=== PATIENT | male | born 2005 | race Caucasian/White ===

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

== ENCOUNTER 2024-06-22 02:41 | Day surgery (SDC) | payer OTHER ==
[~2024-06-22] VITALS: Ht 177.8 cm; Wt 77.4 kg
[2024-06-22] VITALS (9 sets, daily range): BP systolic 108–125; BP diastolic 63–83; PULSE 53–86; TEMP 97.9–98.6
[2024-06-22] MEDS ORDERED: Ketorolac 15 MG/ML VIAL IV ONE (03:00)
[2024-06-22] MEDS ORDERED: NS 1,000 ML IV ONE (03:00)
[2024-06-22] MEDS ORDERED: Iohexol 300 - 100 ML VIAL IV ONE (03:20)
[2024-06-22] MEDS ORDERED: NS 50 ML IV SCH (03:20)
[2024-06-22 03:23] LABS: BASO # 0.1 K/mm3 (0.0-0.2); BASO % 0.3 % (0.0-2.0); EOS # 1.4 K/mm3 (0.0-0.7); GRAN # 12.5 K/mm3 (1.4-6.5); GRAN % 74.3 % (42.2-75.2); HEMATOCRIT 40.2 % (42.0-52.0); LYMPH # 2.2 K/mm3 (1.2-3.4); LYMPH % 13.2 % (20.0-51.0); MEAN CELL VOLUME 93 fl (80.0-100.0); MEAN CORPUSCULAR HEMOGLOBIN 32 pg (27-31); MEAN CORPUSCULAR HGB CONC 35 g/dl (33.0-37.0); MEAN PLATELET VOLUME 9.2 fl (7.4-10.4); MONO # 0.6 K/mm3 (0.1-0.6); MONO % 3.8 % (1.7-9.3); PLATELET COUNT 272 K/mm3 (130-400); RED BLOOD COUNT 4.34 M/mm3 (4.20-5.60); REDCELL DISTRIBUTION WIDTH-CV 13.2 % (11.5-14.5)
[2024-06-22 03:24] LABS: URINE APPEARANCE CLEAR (CLEAR/HAZY); URINE BLOOD NEGATIVE (NEGATIVE); URINE COLOR YELLOW (YELLOW); URINE GLUCOSE NEGATIVE (NEGATIVE); URINE KETONE NEGATIVE (NEGATIVE); URINE NITRATE NEGATIVE (NEGATIVE); URINE PROTEIN(semi-quant) NEGATIVE (NEGATIVE); URINE UROBILINOGEN 0.2 E.U/dL (0.2-1.0)
[2024-06-22 03:47] LABS: BILIRUBIN,TOTAL 0.5 mg/dL (0.2-1.2); CALCIUM 9.2 mg/dL (8.4-10.2); CREATININE, serum 1.26 mg/dL (0.72-1.25); MAGNESIUM 1.8 mg/dL (1.6-2.6); POTASSIUM 4.1 mEq/L (3.5-4.5); TOTAL PROTEIN 6.7 g/dl (6.2-8.1)
[2024-06-22 03:48] LABS: COLLECTION METHOD CLEAN CATCH
--- NOTE | 2024-06-22 04:51 | NUR ---
THE PATIENT ARRIVED VIA WC ACCOMPANIED BY ED STAFF. THE PATIENT WAS ALERT AND ORIENTED. VITAL SIGNS STABLE. THE PATIENT WAS ORIENTED TO THE ROOM AND BED CONTROLS. CALL LIGHT WITHIN REACH.
[2024-06-22] MEDS ORDERED: ZYRTEC ALLERGY10 MG PO (04:54)
[2024-06-22] MEDS ORDERED: Morphine 4 MG/ML VIAL IV PRN (05:00)
--- NOTE | 2024-06-22 09:10 | NUR ---
SHIFT ASSESSMENT COMPLETE. VSS. PATIENT RESTING IN BED AT THIS TIME, AWAITING TO GO DOWN FOR SURGERY. PATIENT REPORTS FEELING SORE IN THE ABD AREA BUT NO ACTIVE PAIN. PATIENT INDEPENDENT IN ROOM AND HAS GIRLFRIEND AT BEDSIDE. PATIENT HAS NO NEEDS RIGHT NOW. CALL LIGHT IN REACH
[2024-06-22] MEDS ORDERED: LR 1,000 ML IV SCH (09:30)
--- NOTE | 2024-06-22 09:39 | NUR ---
SW met with patient to complete intake. Patient provides he currently lives in [facility] but originally from [place]. Next of kin or point of contact is his mother Marilyn Gallardo [phone]. 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 Patient states that his PCP is in [place] and currently utilizes [facility] for his pharmacy. No DPOA has been appointed and patient plans to return to his home in [facility] upon discharge. [facility] will continue to follow. Discharge plan: home
[2024-06-22] MEDS ORDERED: fentaNYL 50 MCG/ML 2 ML VIAL ONE (09:58)
[2024-06-22] MEDS ORDERED: Rocuronium 50 MG/5 ML Multi-Dose VIAL ONE (09:58)
[2024-06-22] MEDS ORDERED: NS 0 ML IV ONE (09:58)
[2024-06-22] MEDS ORDERED: dexAMETHasone 10 MG/ML VIAL ONE (09:58)
[2024-06-22] MEDS ORDERED: Lidocaine PF 2% (20 MG/ML) 5 ML VIAL ONE (09:58)
[2024-06-22] MEDS ORDERED: Ondansetron 4 MG/2 ML VIAL ONE (09:58)
[2024-06-22] MEDS ORDERED: Morphine 2 MG/1 ML VIAL [PACU/SDC ONLY] IV PRN (10:15)
[2024-06-22] MEDS ORDERED: Ondansetron 4 MG/2 ML VIAL IV PRN ×3 (10:15→12:15)
[2024-06-22] MEDS ORDERED: Meperidine 50 MG/ML 1 ML VIAL IV PRN (10:15)
[2024-06-22] MEDS ORDERED: HYDROmorphone 1 MG/1 ML SYRINGE [PACU/SDC ONLY] IV PRN (10:15)
[2024-06-22] MEDS ORDERED: fentaNYL 50 MCG/ML 1 ML SYRINGE/VIAL [PACU/SDC ONLY] IV PRN (10:15)
[2024-06-22] MEDS ORDERED: Acetaminophen 500 MG TAB PO PRN (12:15)
--- NOTE | 2024-06-22 12:30 | NUR ---
PATIENT ARRIVED TO FLOOR AT 1215. VSS. PATIENT REPORTS NO PAIN AT THIS TIME. WATER GIVEN PATIENT DECLINED FOOD AT THIS TIME. PATIENT HAS NO NEEDS AT THIS TIME, FAMILY AT BEDSIDE. [address] [facility]. CALL LIGHT IN REACH
--- NOTE | 2024-06-22 12:35 | NUR ---
Data: Spiritual care visit attempted during Leader Tier rounds. Patient was in surgery. Assessment: None at this time. Plan of Care: Chaplains will remain available as needed/requested while Patient is admitted to this hospital.
== END 2024-06-22 15:00 | disposition home or self-care (01) ==
LOC: COL.ER 02:41 → SDCO 03:35 → SURG 03:35 → SDCO 03:35 → SURG 03:36 → SDCO 15:00 → SURG 15:00
PROVIDERS: Emergency Medicine
DX: K35.80 Unspecified acute appendicitis (principal); F17.290 Nicotine dependence, other tobacco product, uncomplicated
CPT/HCPCS: OP; G0378; J0690; J1100; J1885; J2405; J2543; J2704; J3010; J7030; Q9967